=== PATIENT | female | born 1975 | race Hispanic/Latino ===

== ENCOUNTER 2017-01-05 08:44 | Emergency (ER) | payer MEDICARE ==
[2017-01-05 08:57] VITALS: BP 118/74
[2017-01-05 09:10] LABS: Basophils % (Auto) 0.9 % (0.0-1.8); Eosinophils % (Auto) 1.1 % (0.0-4.3); Hematocrit 38.3 % (30.3-42.9); Hemoglobin 13.1 gm/dl (10.1-14.3); Mean Corpuscular HGB Conc 34 % (30-34); Mean Corpuscular Hemoglobin 32 pg (28-32); Mean Corpuscular Volume 94 fl (79-97); Platelet Count 227 K/mm3 (140-440); Red Cell Distribution Width 13.7 % (13.2-15.2); White Blood Count 9.4 K/mm3 (4.5-11.0)
[2017-01-05 09:25] LABS: Anion Gap 20 mmol/L; BUN/Creatinine Ratio 18.33; Blood Urea Nitrogen 11 mg/dL (7-17); Calcium 9.4 mg/dL (8.4-10.2); Carbon Dioxide 22 mmol/L (22-30); Chloride 103.8 mmol/L (98-107); Glucose 104 mg/dL (65-100); Potassium 3.3 mmol/L (3.6-5.0); Sodium 142 mmol/L (137-145)
--- NOTE | 2017-01-05 10:53 | XRay Report ---
ROUTINE CHEST, TWO VIEWS: HISTORY: Cough. The trachea, heart, mediastinal contour, lung bentley and bony thorax are unremarkable. IMPRESSION: Unremarkable chest x-ray.
[2017-01-05 11:01] LABS: Bacteria,Urine 1+ /HPF (Negative); Bilirubin,Urine NEG (Negative); Blood,Urine NEG (Negative); Ketones,Urine NEG (Negative); Leukocyte Esterase,Urine NEG (Negative); Mucus,Urine 3+ /HPF; Nitrite,Urine NEG (Negative); Protein,Urine <15 mg/dL mg/dL (Negative); Urobilinogen,Urine < 2.0 mg/dL (<2.0)
--- NOTE | 2017-01-10 22:11 | ED Elopement Review ---
ED Pt Elopement review - Results review Lab results: Laboratory Tests 01/05/17 01/05/17 01/05/17 09:00 09:00 10:15 WBC 9.4 RBC 4.10 Hgb 13.1 Hct 38.3 MCV 94 MCH 32 MCHC 34 RDW 13.7 Plt Count 227 Lymph % (Auto) 29.4 [place] % (Auto) 9.1 H Eos % (Auto) 1.1 Baso % (Auto) 0.9 Lymph # 2.8 [place] # 0.9 H Eos # 0.1 Baso # 0.1 Seg Neutrophils % 59.5 Seg Neutrophils # 5.6 Sodium 142 Potassium 3.3 L Chloride 103.8 Carbon Dioxide 22 Anion Gap 20 BUN 11 Creatinine 0.6 L Estimated GFR > 60 BUN/Creatinine Ratio 18.33 Glucose 104 H Calcium 9.4 Urine Color Yellow Urine Turbidity Clear Urine pH 5.0 Ur Specific [place] 1.017 Urine Protein <15 mg/dl Urine Glucose (UA) Neg Urine Ketones Neg Urine Blood Neg Urine Nitrite Neg Urine Bilirubin Neg Urine Urobilinogen < 2.0 Ur Leukocyte Esterase Neg Urine WBC (Auto) 1.0 Urine RBC (Auto) 1.0 U Epithel Cells (Auto) 1.0 Urine Bacteria (Auto) 1+ Urine Mucus 3+ - Call Back decision Pt Call Back Decision: Pt to F/U with PMD (mild hypokalemia)
== END 2017-01-05 10:16 | disposition left against medical advice (07) ==
LOC: ED 08:44
DX: R11.2 Nausea with vomiting, unspecified (principal); R19.7 Diarrhea, unspecified; J45.909 Unspecified asthma, uncomplicated; F17.200 Nicotine dependence, unspecified, uncomplicated; Z88.0 Allergy status to penicillin; Z88.6 Allergy status to analgesic agent; Z53.21 Procedure and treatment not carried out due to patient leaving prior to being seen by health care provider
CPT/HCPCS: 36415; 71020; 80048; 81001; 85025

== ENCOUNTER 2017-01-16 16:33 | Emergency (ER) | payer MEDICARE ==
[2017-01-16 16:52] VITALS: BP 107/79
--- NOTE | 2017-01-16 17:16 | Emergency Department Report ---
HPI - General Chief Complaint: Medical Clearance Time Seen by Provider: 01/16/17 17:15 - HPI HPI: Patient has no chief complaint. Denies shortness breath, denies cough denies fever denies chest pain denies nausea vomiting headache syncope blurred vision. Patient states she return to the ER to get results from her last visit in which she left AMA. ED Past Medical Hx - Past Medical History Previous Medical History?: Yes Hx Asthma: Yes Additional medical history: cardiomegaly - Surgical History Past Surgical History?: Yes Hx Appendectomy: Yes Additional Surgical History: bladder surgery, nasal surgery - Social History Smoking Status: Current Every Day Smoker Substance Use Type: Marijuana - Medications Home Medications: Home Medications Medication Instructions Recorded Confirmed Last Taken Type Albuterol *Only Ed* [Proventil 04/29/13 04/29/13 04/16/13 09:00 History 0.5% NEBS] clonazePAM [Klonopin] 1 mg PO 04/29/13 04/29/13 04/16/13 12:00 History Ibuprofen [Motrin] 800 mg PO Q8H PRN #20 tablet 05/12/14 Unknown Rx ED Review of Systems ROS: Stated complaint: LETTER TO FOLLOW UP ED VISIT Other details as noted in HPI Constitutional: denies: chills, fever Eyes: denies: eye pain, eye discharge, vision change ENT: denies: ear pain, throat pain Respiratory: denies: cough, shortness of breath, wheezing Cardiovascular: denies: chest pain, palpitations Endocrine: no symptoms reported Gastrointestinal: denies: abdominal pain, nausea, diarrhea Genitourinary: denies: urgency, dysuria, discharge Musculoskeletal: denies: back pain, joint swelling, arthralgia Skin: denies: rash, lesions Neurological: denies: headache, weakness, paresthesias Psychiatric: denies: anxiety, depression Hematological/Lymphatic: denies: easy bleeding, easy bruising Physical Exam - Physical Exam Vital Signs: Vital Signs 01/16/17 16:47 Temperature 98.3 F Pulse Rate 74 Respiratory 18 Rate Blood Pressure 107/79 Blood Pressure 107/79 [Right] O2 Sat by Pulse 99 Oximetry General: Patient awake alert and oriented, no focal neuro deficit, normotensive normal cardiac and afebrile, eating Doritos on physical exam. Patient has no respiratory distress, abdomen soft nontender, patient's moving all extremities 4 full range of motion good cap refill. Skin is clear of rash lesions or diaphoresis. Patient's eyes are PERRLA. I reviewed the patient's chest x-ray and labs prior visit and there were no negative findings. ED Course Vital Signs 01/16/17 16:47 Temperature 98.3 F Pulse Rate 74 Respiratory 18 Rate Blood Pressure 107/79 Blood Pressure 107/79 [Right] O2 Sat by Pulse 99 Oximetry Critical care attestation.: If time is entered above; I have spent that time in minutes in the direct care of this critically ill patient, excluding procedure time. ED Disposition Clinical Impression: Normal exam Disposition: DISCHARGED TO HOME OR SELFCARE Is pt being admited?: No Condition: Stable Referrals: PRIMARY CARE, [Primary Care Provider] - 3-5 Days MASON BRASWELL MD [Staff Physician] - 3-5 Days
== END 2017-01-16 17:37 | disposition home or self-care (01) ==
LOC: ED 16:33
DX: Z00.00 Encounter for general adult medical examination without abnormal findings (principal); F17.200 Nicotine dependence, unspecified, uncomplicated; F12.10 Cannabis abuse, uncomplicated; J45.909 Unspecified asthma, uncomplicated; Z98.890 Other specified postprocedural states
CPT/HCPCS: 99281

== ENCOUNTER 2017-03-10 19:07 | Emergency (ER) | payer MEDICARE ==
[2017-03-10 19:34] VITALS: BP 107/75
[2017-03-10] MEDS ORDERED: BOOSTRIX IM ONE (20:01)
[2017-03-10] MEDS ORDERED: ULTRAM PO ONE (20:01)
--- NOTE | 2017-03-10 20:03 | Emergency Department Report ---
ED Upper Extremity Inj HPI - General Chief Complaint: Extremity Injury, Upper Stated Complaint: RT POINTER FINGER POSS BROKEN Time Seen by Provider: 03/10/17 19:53 Source: patient Mode of arrival: Ambulatory Limitations: No Limitations - History of Present Illness Initial Comments: right index finger versus hammer 2 days ago pain MD marianne Complaint: Injury to:: right, finger Onset/Timin -: days(s) Other Extremity Injury: Fingers: Right (right index ) Other Injuries: none Handedness: right Place: home Severity scale (0 -10): 3 Improves With: none Worsens With: movement of extremity Context: direct blow Associated Symptoms: denies: weakness, numbness, neck pain, suspects foreign body, nausea/vomiting, heard/felt popping sensat Treatments Prior to Arrival: cold therapy - Related Data Home Medications Medication Instructions Recorded Confirmed Last Taken Albuterol *Only Ed* [Proventil 04/29/13 04/29/13 04/16/13 09:00 0.5% NEBS] clonazePAM [Klonopin] 1 mg PO 04/29/13 04/29/13 04/16/13 12:00 Previous Rx's Medication Instructions Recorded Last Taken Type Ibuprofen [Motrin] 800 mg PO Q8H PRN #20 tablet 05/12/14 Unknown Rx Naproxen [Naprosyn TAB] 500 mg PO BID PRN #60 tablet 03/10/17 Unknown Rx Neomycin [place]/Bacitrac Zn/Poly 14.2 gm TP BID #1 tube 03/10/17 Unknown Rx [Neosporin Antibiotic Ointment] Allergies Allergy/AdvReac Type Severity Reaction Status Date / Time Penicillins Allergy Hives Verified 04/29/13 11:59 aspirin AdvReac Bleeding Verified 04/29/13 11:59 bug control spray Allergy Shortness Uncoded 01/05/17 08:52 of Breath ED Review of Systems ROS: Stated complaint: RT POINTER FINGER POSS BROKEN Other details as noted in HPI Constitutional: denies: chills, fever Eyes: denies: eye pain, eye discharge, vision change ENT: denies: ear pain, throat pain Respiratory: no symptoms reported Cardiovascular: denies: chest pain, palpitations Endocrine: no symptoms reported Gastrointestinal: denies: abdominal pain, nausea, diarrhea Genitourinary: denies: urgency, dysuria, discharge Musculoskeletal: myalgia. denies: back pain, joint swelling Skin: lesions, other (right dorsal index finger ) Neurological: denies: headache, weakness, paresthesias Psychiatric: denies: anxiety, depression Hematological/Lymphatic: denies: easy bleeding, easy bruising ED Past Medical Hx - Past Medical History Previous Medical History?: Yes Hx Asthma: Yes Additional medical history: cardiomegaly - Surgical History Past Surgical History?: Yes Hx Appendectomy: Yes Additional Surgical History: bladder surgery, nasal surgery - Social History Smoking Status: Current Every Day Smoker Substance Use Type: None - Medications Home Medications: Home Medications Medication Instructions Recorded Confirmed Last Taken Type Albuterol *Only Ed* [Proventil 04/29/13 04/29/13 04/16/13 09:00 History 0.5% NEBS] clonazePAM [Klonopin] 1 mg PO 04/29/13 04/29/13 04/16/13 12:00 History Ibuprofen [Motrin] 800 mg PO Q8H PRN #20 tablet 05/12/14 Unknown Rx Naproxen [Naprosyn TAB] 500 mg PO BID PRN #60 tablet 03/10/17 Unknown Rx Neomycin [place]/Bacitrac Zn/Poly 14.2 gm TP BID #1 tube 03/10/17 Unknown Rx [Neosporin Antibiotic Ointment] ED Physical Exam - General Limitations: No Limitations General appearance: alert, in no apparent distress - Head Head exam: Present: atraumatic, normocephalic - Eye Eye exam: Present: normal appearance - ENT ENT exam: Present: mucous membranes moist - Neck Neck exam: Present: normal inspection - Respiratory Respiratory exam: Present: normal lung sounds bilaterally. Absent: respiratory distress - Cardiovascular Cardiovascular Exam: Present: regular rate, normal rhythm. Absent: systolic murmur, diastolic murmur, rubs, gallop - GI/Abdominal GI/Abdominal exam: Present: soft, normal bowel sounds - Rectal Rectal exam: Present: deferred - Extremities Exam Extremities exam: Present: normal inspection, tenderness, normal capillary refill. Absent: joint swelling, calf tenderness - Expanded Upper Extremity Exam Right Shoulder Exam: Present: normal inspection, full ROM Upper Arm exam: Present: normal inspection, full ROM Elbow exam: Present: normal inspection, full ROM Forearm Wrist exam: Present: normal inspection, full ROM Hand Wrist exam: Present: normal inspection, tenderness, abrasion (right index finger approx 3 cm serious drainage ), other (right index finger ). Absent: swelling, ecchymosis, deformity, crepidus, dislocation, erythema, amputation, nail avulsion, subungual hematoma Neuro motor exam: Present: wrist extension intact, thumb opposition intact, thumb IP flexion intact, thumb adduction intact, fingers 2-5 abduction intact Neurosensory exam: Present: 2-point discrimination, radial nerve intact, ulnar nerve intact, median nerve intact Vascular: Present: normal capillary refill, radial pulse, brachial pulse, ulnar pulse. Absent: vascular compromise, Pallo, pulse deficit radial art, pulse deficit ulnar art, pulse deficit brachial art - Back Exam Back exam: Present: normal inspection - Neurological Exam Neurological exam: Present: alert, oriented X3 - Psychiatric Psychiatric exam: Present: normal affect, normal mood - Skin Skin exam: Present: warm, dry, intact, normal color. Absent: rash ED Course Vital Signs 03/10/17 19:27 Temperature 98.3 F Pulse Rate 73 Respiratory 20 Rate Blood Pressure 107/75 O2 Sat by Pulse 100 Oximetry ED Medical Decision Making - Radiology Data Radiology results: image reviewed no fracture no soft tissue abnormality - Medical Decision Making pt is s a42 y/o w/f who presents for right index finger abrasions and pain s/p hammer for finger with attempt to hammer nail in wall at home 1 day ago sympttoms include pain aching tingling , pain 4/10 exacerbated by movement pt relieved by nothing exam abrasion approx 3 cm serous drainage, pain with flexion /extension there is no deformity no ecchymosis no swelling button puncher < 3 sec fist adductio abduction to confrontation intact rad pulse +2, xray negative for fracture will tdap, nsaids for pain finger splint tx of finger sprain , pt verbalized agreement and understanding with discharge plan. Critical care attestation.: If time is entered above; I have spent that time in minutes in the direct care of this critically ill patient, excluding procedure time. ED Disposition Clinical Impression: Sprain of finger, right Qualifiers: Encounter type: initial encounter Finger: index finger Sprain of finger site: interphalangeal joint Qualified Code(s): S63.630A - Sprain of interphalangeal joint of right index finger, initial encounter Disposition: TO HOME OR SELFCARE Is pt being admited?: No Does the pt Need Aspirin: No Condition: Good Instructions: Finger Sprain (ED), Abrasion (ED) Prescriptions: Naproxen [Naprosyn TAB] 500 mg PO BID PRN #60 tablet PRN Reason: Pain Neomycin [place]/Bacitrac Zn/Poly [Neosporin Antibiotic Ointment] 14.2 gm TP BID #1 tube Referrals: PRIMARY CARE, [Referring] - 3-5 Days Forms: Work/School Release Form(ED) Time of Disposition: 20:15
--- NOTE | 2017-03-10 20:38 | XRay Report ---
FINAL REPORT PROCEDURE: XR FINGER(S) 2+V RT TECHNIQUE: RIGHT index finger radiographs, including AP, lateral, and oblique views. HISTORY: RIGHT INDEX FINGER PAIN COMPARISON: No prior studies are available for comparison. FINDINGS: Fracture (s) and/or Dislocation(s): None . Alignment: Normal. Joint space(s): Normal . Soft tissues: Normal . Bone mineralization: Normal . Foreign bodies: None . IMPRESSION: Negative examination
== END 2017-03-10 20:33 | disposition home or self-care (01) ==
LOC: ED 19:07
DX: S63.630A Sprain of interphalangeal joint of right index finger, initial encounter (principal); J45.909 Unspecified asthma, uncomplicated; F17.200 Nicotine dependence, unspecified, uncomplicated; X58.XXXA Exposure to other specified factors, initial encounter; Y93.9 Activity, unspecified; Y92.9 Unspecified place or not applicable; Y99.9 Unspecified external cause status
CPT/HCPCS: 90471; 90715

== ENCOUNTER 2017-08-08 11:23 | Emergency (ER) | payer MEDICARE ==
[2017-08-08 12:27] LABS: Hematocrit 37.8 % (30.3-42.9); Hemoglobin 12.7 gm/dl (10.1-14.3); Mean Corpuscular HGB Conc 34 % (30-34); Mean Corpuscular Hemoglobin 31 pg (28-32); Mean Corpuscular Volume 92 fl (79-97); Platelet Count 216 K/mm3 (140-440); Red Blood Count 4.12 M/mm3 (3.65-5.03); White Blood Count 12.8 K/mm3 (4.5-11.0)
[2017-08-08 12:49] LABS: Anion Gap 23 mmol/L; BUN/Creatinine Ratio 18; Blood Urea Nitrogen 11 mg/dL (7-17); Calcium 9.3 mg/dL (8.4-10.2); Carbon Dioxide 19 mmol/L (22-30); Chloride 103.1 mmol/L (98-107); Glucose 99 mg/dL (65-100); Sodium 142 mmol/L (137-145)
[2017-08-08 12:58] LABS: Potassium 2.9 mmol/L (3.6-5.0)
[2017-08-08] MEDS ORDERED: K-DUR PO ONE (12:59)
[2017-08-08 13:03] LABS: Basophils % (Manual) 0 % (0.0-1.8); Blastocytes % (Manual) 0 %; Diff Status Complete; Eosinophils % (Manual) 0 % (0.0-4.3); RBC Morphology Normal
[2017-08-08] MEDS ORDERED: NORCO 5/325 PO ONE (13:09)
[2017-08-08] MEDS ORDERED: TESSALON PERLES PO ONE (13:11)
[2017-08-08] MEDS ORDERED: ATROVENT IH ONE (13:11)
[2017-08-08] MEDS ORDERED: PROVENTIL IH ONE (13:11)
--- NOTE | 2017-08-08 13:16 | Emergency Department Report ---
HPI - General Chief Complaint: Chest Pain Time Seen by Provider: 08/08/17 12:57 - HPI HPI: Room 26 The patient is a 42-year-old female presenting with a chief complaint of cough, facial pain and sore throat. The patient states for 1 week she has had nausea vomiting diarrhea condition to a cough productive of green sputum. Patient states she has left facial pain and sore throat. Patient admits to shaking chills. Patient states she had a fever at home of 100.7F. There are no sick contacts. Location: [See above] Duration: One week Quality: Pain Severity: Moderate Modifying factors: [see above] Context: [see above] Mode of transportation: [not driving] ED Past Medical Hx - Past Medical History Previous Medical History?: Yes Hx Asthma: Yes Additional medical history: cardiomegaly - Surgical History Hx Appendectomy: Yes Additional Surgical History: bladder surgery, nasal surgery - Family History Family history: no significant - Social History Smoking Status: Current Every Day Smoker (1/2 pack per day) Substance Use Type: None (denies illicit drug use) - Medications Home Medications: Home Medications Medication Instructions Recorded Confirmed Last Taken Type Albuterol *Only Ed* [Proventil 04/29/13 04/29/13 04/16/13 09:00 History 0.5% NEBS] clonazePAM [Klonopin] 1 mg PO 04/29/13 04/29/13 04/16/13 12:00 History Ibuprofen [Motrin] 800 mg PO Q8H PRN #20 tablet 05/12/14 Unknown Rx Naproxen [Naprosyn TAB] 500 mg PO BID PRN #60 tablet 03/10/17 Unknown Rx Neomycin/Bacitracin/Polymyxinb 14.2 gm TP BID #1 tube 03/10/17 Unknown Rx [Neosporin Antibiotic Ointment] ALBUTEROL Inhaler [Proair] 2 puff IH QID PRN #1 inhalation 08/08/17 Unknown Rx Azithromycin [Zithromax Z-LILIAN] 0 mg PO DAILY #6 tab 08/08/17 Unknown Rx Benzonatate [Tessalon Perle] 100 mg PO TID PRN #30 capsule 08/08/17 Unknown Rx HYDROcodone/APAP 5-325 [[place] 1 - 2 each PO Q6HR PRN #14 tablet 08/08/17 Unknown Rx 5/325] ED Review of Systems ROS: Stated complaint: BODY ACHES/FEVER/COUGHING Other details as noted in HPI Constitutional: chills, fever ENT: throat pain, other (facial pain) Respiratory: cough Gastrointestinal: nausea, vomiting, diarrhea Musculoskeletal: denies: myalgia Physical Exam - Physical Exam Vital Signs: Vital Signs 08/08/17 08/08/17 08/08/17 11:31 11:37 11:43 Temperature 98.4 F 98.4 F Pulse Rate 65 67 68 Respiratory 25 H 10 L 22 Rate Blood Pressure 102/64 Blood Pressure 102/64 [Left] O2 Sat by Pulse 99 99 98 Oximetry 08/08/17 08/08/17 12:46 12:48 Temperature Pulse Rate 63 Respiratory 14 Rate Blood Pressure Blood Pressure [Left] O2 Sat by Pulse 98 Oximetry Physical Exam: GENERAL: The patient is well-developed well-nourished female lying on stretcher not appearing to be in acute distress. [] HEENT: Normocephalic. Atraumatic. Extraocular motions are intact. Patient has moist mucous membranes. TMs clear bilaterally NECK: Supple. No meningitic signs are noted. There is left cervical adenopathy noted. CHEST/LUNGS: Clear to auscultation. There is no respiratory distress noted. HEART/CARDIOVASCULAR: Regular. There is no tachycardia. There is no gallop rub or murmur. ABDOMEN: Abdomen is soft, nontender. Patient has normal bowel sounds. There is no abdominal distention. SKIN: There is no rash. There is no edema. There is no diaphoresis. NEURO: The patient is awake, alert, and oriented. The patient is cooperative. The patient has normal speech MUSCULOSKELETAL: There is no evidence of acute injury. ED Course Vital Signs 08/08/17 08/08/17 08/08/17 11:31 11:37 11:43 Temperature 98.4 F 98.4 F Pulse Rate 65 67 68 Respiratory 25 H 10 L 22 Rate Blood Pressure 102/64 Blood Pressure 102/64 [Left] O2 Sat by Pulse 99 99 98 Oximetry 08/08/17 08/08/17 12:46 12:48 Temperature Pulse Rate 63 Respiratory 14 Rate Blood Pressure Blood Pressure [Left] O2 Sat by Pulse 98 Oximetry ED Medical Decision Making - Lab Data Result diagrams: 08/08/17 12:23 08/08/17 12:23 Laboratory Tests 08/08/17 08/08/17 08/08/17 12:23 12:23 15:20 WBC 12.8 H RBC 4.12 Hgb 12.7 Hct 37.8 MCV 92 MCH 31 MCHC 34 RDW 13.0 L Plt Count 216 Lymph # Manager Paper Add Manual Diff Complete Total Counted 100 Seg Neuts % (Manual) 60.0 Band Neutrophils % 0 Lymphocytes % (Manual) 29.0 Reactive Lymphs % (Man) 0 Monocytes % (Manual) 11.0 H Eosinophils % (Manual) 0 Basophils % (Manual) 0 Metamyelocytes % 0 Myelocytes % 0 Promyelocytes % 0 Blast Cells % 0 Nucleated RBC % Not Reportable Seg Neutrophils # Man 7.7 Band Neutrophils # 0.0 Lymphocytes # (Manual) 3.7 Abs React Lymphs (Man) 0.0 Monocytes # (Manual) 1.4 H Eosinophils # (Manual) 0.0 Basophils # (Manual) 0.0 Metamyelocytes # 0.0 Myelocytes # 0.0 Promyelocytes # 0.0 Blast Cells # 0.0 WBC Morphology Not Reportable Hypersegmented Neuts Not Reportable Hyposegmented Neuts Not Reportable Hypogranular Neuts Not Reportable Smudge Cells Not Reportable Toxic Granulation Not Reportable Toxic Vacuolation Not Reportable Dohle Bodies Not Reportable Pelger-Huet Anomaly Not Reportable Kaylin Rods Not Reportable Platelet Estimate Appears normal Clumped Platelets Not Reportable Plt Clumps, EDTA Not Reportable Large Platelets Not Reportable Giant Platelets Not Reportable Platelet Satelliting Not Reportable Plt Morphology Comment Not Reportable RBC Morphology Normal Dimorphic RBCs Not Reportable Polychromasia Not Reportable Hypochromasia Not Reportable Poikilocytosis Not Reportable Anisocytosis Not Reportable Microcytosis Not Reportable Macrocytosis Not Reportable Spherocytes Not Reportable Pappenheimer Bodies Not Reportable Sickle Cells Not Reportable Target Cells Not Reportable Tear Drop Cells Not Reportable Ovalocytes Not Reportable Helmet Cells Not Reportable Ochoa-Leith Bodies Not Reportable [place] Rings Not Reportable Rubi Cells Not Reportable Bite Cells Not Reportable Crenated Cell Not Reportable Elliptocytes Not Reportable Acanthocytes (Spur) Not Reportable Rouleaux Not Reportable Hemoglobin C Crystals Not Reportable Schistocytes Not Reportable Malaria parasites Not Reportable Santos Bodies Not Reportable Hem Pathologist Commnt No Sodium 142 Potassium 2.9 L* Chloride 103.1 Carbon Dioxide 19 L Anion Gap 23 BUN 11 Creatinine 0.6 L Estimated GFR > 60 BUN/Creatinine Ratio 18 Glucose 99 Calcium 9.3 Troponin T < 0.010 < 0.010 Influenza negative - EKG Data -: EKG Interpreted by Me EKG shows normal: sinus rhythm Rate: normal - EKG Data When compared to previous EKG there are: previous EKG unavailable Interpretation: nonspecific ST-T wave terrie (biphasic T-wave in lead V2) - Radiology Data Radiology results: image reviewed (chest x-ray) interpreted by me: Chest x-ray-no focal infiltrates, no pneumothorax - Differential Diagnosis pneumonia, sinusitis, influenza, pharyngitis Critical care attestation.: If time is entered above; I have spent that time in minutes in the direct care of this critically ill patient, excluding procedure time. ED Disposition Clinical Impression: Acute sinusitis, Acute pharyngitis, Acute bronchitis Disposition: - TO HOME OR SELFCARE Is pt being admited?: No Does the pt Need Aspirin: No Condition: Stable Instructions: Acute Bronchitis (ED) Additional Instructions: Return to the emergency department immediately should you develop worsening symptoms, fever, inability to tolerate food or liquid or any other concerns. Prescriptions: ALBUTEROL Inhaler [Proair] 2 puff IH QID PRN #1 inhalation PRN Reason: Shortness Of Breath Azithromycin [Zithromax Z-LILIAN] 0 mg PO DAILY #6 tab Benzonatate [Tessalon Perle] 100 mg PO TID PRN #30 capsule PRN Reason: Cough HYDROcodone/APAP 5-325 [[place] 5/325] 1 - 2 each PO Q6HR PRN #14 tablet PRN Reason: Pain Referrals: ADRIAN VIZCAINO JR, MD [Primary Care Provider] - 3-5 Days Time of Disposition: 16:58
--- NOTE | 2017-08-08 13:34 | XRay Report ---
PORTABLE CHEST: Productive cough. An AP portable view of the chest demonstrates a normal cardiac contour considering the limits of this technique. The lungs are clear with no evidence of infiltrate, fluid or failure. IMPRESSION: Normal portable chest.
[2017-08-08 16:52] VITALS: BP 109/68
== END 2017-08-08 17:32 | disposition home or self-care (01) ==
LOC: ED 11:23
DX: J20.9 Acute bronchitis, unspecified (principal); J02.9 Acute pharyngitis, unspecified; J01.90 Acute sinusitis, unspecified; J45.909 Unspecified asthma, uncomplicated; F17.200 Nicotine dependence, unspecified, uncomplicated; Z88.0 Allergy status to penicillin; Z88.6 Allergy status to analgesic agent
CPT/HCPCS: 36415; 71010; 80048; 84484; 85007; 85025; 87400; 93005; 93010; 94640

== ENCOUNTER 2018-04-06 18:38 | Emergency (ER) | payer MEDICARE ==
[2018-04-06 19:40] VITALS: BP 149/85
[2018-04-06] MEDS ORDERED: MOTRIN ONE (19:53)
[2018-04-06] MEDS ORDERED: MOTRIN PO ONE (19:56)
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
[2018-04-06] MEDS ORDERED: MORPHINE IV ONE (21:17)
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
== END 2018-04-06 21:47 | disposition home or self-care (01) ==
LOC: ED 18:38
DX: S56.912A Strain of unspecified muscles, fascia and tendons at forearm level, left arm, initial encounter (principal); F17.200 Nicotine dependence, unspecified, uncomplicated; J45.909 Unspecified asthma, uncomplicated; F12.10 Cannabis abuse, uncomplicated; Z90.49 Acquired absence of other specified parts of digestive tract; Z88.0 Allergy status to penicillin; Z88.8 Allergy status to other drugs, medicaments and biological substances; V09.9XXA Pedestrian injured in unspecified transport accident, initial encounter; Y93.89 Activity, other specified; Y92.89 Other specified places as the place of occurrence of the external cause; Y99.8 Other external cause status
CPT/HCPCS: 29105; 73060; 73070; 73090; 96374; 99284; J2270

== ENCOUNTER 2018-09-28 12:49 | Emergency (ER) | payer MEDICARE ==
[2018-09-28 13:43] VITALS: BP 120/73
--- NOTE | 2018-09-28 13:46 | Emergency Department Report ---
Blank Doc - Documentation Documentation: 43 y o female presents with pain tp left foot pain s/p dropping a side of the bed frame and landed on her foot 40 mins ago in wheel chair, tender no deformity seen xr ordered
--- NOTE | 2018-09-28 14:29 | XRay Report ---
LEFT FOOT, 3 views: History: Left foot. The bony architecture is intact. Bony alignment is normal. No soft tissue abnormalities are seen. The joint spaces appear preserved. IMPRESSION: Left foot within normal limits.
[2018-09-28] MEDS ORDERED: IBUPROFEN PO ONE (17:00)
--- NOTE | 2018-09-28 17:01 | Emergency Department Report ---
ED Lower Extremity HPI - General Chief Complaint: Extremity Injury, Lower Stated Complaint: (L) FOOT INJURY Time Seen by Provider: 09/28/18 13:40 Source: patient Mode of arrival: Wheelchair Limitations: No Limitations - History of Present Illness Initial Comments: This is a 43-year-old female who presents with left foot pain. Patient states she accidentally dropped the left foot around 12:15 today. She was helping her daughter move a period to paint. There is some bruising and mild swelling to the metatarsal area from third and fourth. Patient states pain is worse with weightbearing. Currently pain is 10 out of 10 on pain scale and a constant throbbing sensation. Patient also complains of a bump in left nare. She reports increased congestion and pressure in the left maxillary area. MD Complaint: foot injury (left) -: This afternoon Time: 12:10 Injury: Foot: Left Type of Injury: blunt Place: home Severity: severe Severity scale (0 -10): 10 Improves With: nothing Worsens With: weight bearing, movement, palpation Context: direct blow Associated Symptoms: swelling, able to partially bear weight, ambulatory. denies: snap/pop sensation, numbness, tingling, unable to bear weight - Related Data Home Medications Medication Instructions Recorded Confirmed Last Taken Albuterol *Only Ed* [Proventil 04/29/13 04/29/13 04/16/13 09:00 0.5% NEBS] clonazePAM [Klonopin] 1 mg PO 04/29/13 04/29/13 04/16/13 12:00 Previous Rx's Medication Instructions Recorded Last Taken Type Ibuprofen [Motrin] 800 mg PO Q8H PRN #20 tablet 05/12/14 Unknown Rx Naproxen [Naprosyn TAB] 500 mg PO BID PRN #60 tablet 03/10/17 Unknown Rx Neomycin/Bacitracin/Polymyxinb 14.2 gm TP BID #1 tube 03/10/17 Unknown Rx [Neosporin Antibiotic Ointment] ALBUTEROL Inhaler (OR & NICU) 2 puff IH QID PRN #1 inhalation 08/08/17 Unknown Rx [Proair] Azithromycin [Zithromax Z-LILIAN] 0 mg PO DAILY #6 tab 08/08/17 Unknown Rx Benzonatate [Tessalon Perle] 100 mg PO TID PRN #30 capsule 08/08/17 Unknown Rx HYDROcodone/APAP 5-325 [[place] 1 - 2 each PO Q6HR PRN #14 tablet 08/08/17 Unknown Rx 5/325] Acetaminophen/Codeine [Tylenol 1 tab PO Q6H PRN #12 tab 04/06/18 Unknown Rx /Codeine # 3 tab] Ibuprofen [Motrin] 600 mg PO Q8H PRN #30 tablet 04/06/18 Unknown Rx Doxycycline Hyclate [Doxycycline 100 mg PO Q12HR #10 tab 09/28/18 Unknown Rx Hyclate TAB] Ibuprofen [Motrin 600 MG tab] 600 mg PO Q8H PRN #12 tablet 09/28/18 Unknown Rx Allergies Allergy/AdvReac Type Severity Reaction Status Date / Time amoxicillin Allergy Hives Verified 09/28/18 13:41 Penicillins Allergy Hives Verified 09/28/18 13:40 aspirin AdvReac Bleeding Verified 09/28/18 13:40 CONTROL Allergy Bleeding Uncoded 09/28/18 13:41 bug control spray Allergy Shortness Uncoded 01/05/17 08:52 of Breath ED Review of Systems ROS: Stated complaint: (L) FOOT INJURY Other details as noted in HPI Constitutional: denies: chills, fever Respiratory: denies: cough, shortness of breath, wheezing Cardiovascular: denies: chest pain, palpitations Gastrointestinal: denies: abdominal pain, nausea, diarrhea Musculoskeletal: arthralgia (left foot). denies: back pain, joint swelling Skin: lesions (bump in the left nare). denies: rash Neurological: denies: headache, weakness, paresthesias ED Past Medical Hx - Past Medical History Hx Asthma: Yes Additional medical history: cardiomegaly - Surgical History Hx Appendectomy: Yes Additional Surgical History: bladder surgery, nasal surgery - Social History Smoking Status: Current Every Day Smoker Substance Use Type: None - Medications Home Medications: Home Medications Medication Instructions Recorded Confirmed Last Taken Type Albuterol *Only Ed* [Proventil 04/29/13 04/29/13 04/16/13 09:00 History 0.5% NEBS] clonazePAM [Klonopin] 1 mg PO 04/29/13 04/29/13 04/16/13 12:00 History Ibuprofen [Motrin] 800 mg PO Q8H PRN #20 tablet 05/12/14 Unknown Rx Naproxen [Naprosyn TAB] 500 mg PO BID PRN #60 tablet 03/10/17 Unknown Rx Neomycin/Bacitracin/Polymyxinb 14.2 gm TP BID #1 tube 03/10/17 Unknown Rx [Neosporin Antibiotic Ointment] ALBUTEROL Inhaler (OR & NICU) 2 puff IH QID PRN #1 inhalation 08/08/17 Unknown Rx [Proair] Azithromycin [Zithromax Z-LILIAN] 0 mg PO DAILY #6 tab 08/08/17 Unknown Rx Benzonatate [Tessalon Perle] 100 mg PO TID PRN #30 capsule 08/08/17 Unknown Rx HYDROcodone/APAP 5-325 [[place] 1 - 2 each PO Q6HR PRN #14 tablet 08/08/17 Unknown Rx 5/325] Acetaminophen/Codeine [Tylenol 1 tab PO Q6H PRN #12 tab 04/06/18 Unknown Rx /Codeine # 3 tab] Ibuprofen [Motrin] 600 mg PO Q8H PRN #30 tablet 04/06/18 Unknown Rx Doxycycline Hyclate [Doxycycline 100 mg PO Q12HR #10 tab 09/28/18 Unknown Rx Hyclate TAB] Ibuprofen [Motrin 600 MG tab] 600 mg PO Q8H PRN #12 tablet 09/28/18 Unknown Rx ED Physical Exam - General Limitations: No Limitations General appearance: alert, in no apparent distress - ENT ENT exam: Present: mucous membranes moist, other (turbinates are congested with mucoid discharge, tenderness over maxillary sinuses) - Neck Neck exam: Present: normal inspection - Respiratory Respiratory exam: Present: normal lung sounds bilaterally. Absent: respiratory distress - Cardiovascular Cardiovascular Exam: Present: regular rate, normal rhythm. Absent: systolic murmur, diastolic murmur, rubs, gallop - GI/Abdominal GI/Abdominal exam: Present: soft, normal bowel sounds. Absent: organomegaly, mass, bruit, pulsatile mass - Expanded Lower Extremity Exam Right Hip exam: Present: normal inspection, full ROM Upper Leg exam: Present: normal inspection, full ROM Knee exam: Present: normal inspection, full ROM Lower Leg exam: Present: normal inspection, full ROM Ankle exam: Present: normal inspection, full ROM Foot/Toe exam: Present: tenderness (erythema, swelling, and tenderness over third and fourth proximal metatarsals), swelling, erythema. Absent: full ROM (Limited range of motion), abrasion, laceration, ecchymosis, deformity, c repidus, dislocation, amputation, puncture wound, foreign body, calcaneal tenderness, tenderness at base of 5th metatarsal, nail avulsion, subungual hematoma - Neurological Exam Neurological exam: Present: alert, oriented X3 - Psychiatric Psychiatric exam: Present: normal affect, normal mood - Skin Skin exam: Present: warm, dry, intact, normal color. Absent: rash ED Course Vital Signs 09/28/18 13:41 Temperature 98 F Pulse Rate 79 Respiratory 18 Rate Blood Pressure 120/73 O2 Sat by Pulse 99 Oximetry ED Lower Extremity MDM - Radiology Data Radiology results: report reviewed LEFT FOOT, 3 views: History: Left foot. The bony architecture is intact. Bony alignment is normal. No soft tissue abnormalities are seen. The joint spaces appear preserved. IMPRESSION: Left foot within normal limits. - Medical Decision Making Patient was examined by me. Vitals are normal and patient is in no acute distress. Obtained a x-ray of left foot. X-ray dictated by radiologist report reviewed by myself. Left foot within normal limits. Muscle sprain of left foot. Jorden wrap applied to left foot. Patient given ibuprofen 800 mg by mouth while in the emergency room. Acute maxillary sinusitis. Given ice therapy instructions. Start ibuprofen and doxycycline. Plan discussed with patient. Patient discharged home in stable condition. Referral to orthopedic surgery for continued care. Follow up with PCP in 2-3 days. Critical care attestation.: If time is entered above; I have spent that time in minutes in the direct care of this critically ill patient, excluding procedure time. ED Disposition Clinical Impression: Injury of foot, left Qualifiers: Encounter type: initial encounter Qualified Code(s): S99.922A - Unspecified injury of left foot, initial encounter Sprain of foot, left Qualifiers: Encounter type: initial encounter Qualified Code(s): S93.602A - Unspecified sprain of left foot, initial encounter Acute maxillary sinusitis Qualifiers: Recurrence: non-recurrent Qualified Code(s): J01.00 - Acute maxillary sinusitis, unspecified Disposition: - TO HOME OR SELFCARE Is pt being admited?: No Does the pt Need Aspirin: No Condition: Stable Instructions: Sinusitis (ED), Foot Sprain (ED), Ankle Exercises (GEN) Additional Instructions: Rest, Use ice or heat on affected area for 20 minutes and off for 2 hours. Take pain medication every 6 hours as needed for pain. Use warm moist compresses over sinuses. Use ibuprofen or Tylenol for pain. Use nasal saline spray. Avoid taking antihistamines. Follow up with Primary Care Provider if fever, short of breath, chest pain, or symptoms do not improve as discussed. Prescriptions: Doxycycline Hyclate [Doxycycline Hyclate TAB] 100 mg PO Q12HR #10 tab Ibuprofen [Motrin 600 MG tab] 600 mg PO Q8H PRN #12 tablet PRN Reason: Pain Referrals: ADRIAN VIZCAINO JR, MD [Primary Care Provider] - 3-5 Days CLEO THOMAS MD [Staff Physician] - 3-5 Days Time of Disposition: 17:36
== END 2018-09-28 17:58 | disposition home or self-care (01) ==
LOC: ED 12:49
DX: S93.602A Unspecified sprain of left foot, initial encounter (principal); J01.00 Acute maxillary sinusitis, unspecified; J45.909 Unspecified asthma, uncomplicated; F17.200 Nicotine dependence, unspecified, uncomplicated; Z88.0 Allergy status to penicillin; Z88.1 Allergy status to other antibiotic agents; Z88.8 Allergy status to other drugs, medicaments and biological substances; W20.8XXA Other cause of strike by thrown, projected or falling object, initial encounter; Y93.89 Activity, other specified; Y92.89 Other specified places as the place of occurrence of the external cause; Y99.8 Other external cause status

== ENCOUNTER 2018-10-30 14:42 | Emergency (ER) | payer MEDICARE ==
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
[2018-10-30 16:40] VITALS: BP 113/85
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
[2018-10-30] MEDS ORDERED: IBUPROFEN PO ONE (19:26)
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
== END 2018-10-30 19:45 | disposition home or self-care (01) ==
LOC: ED 14:42
DX: S16.1XXA Strain of muscle, fascia and tendon at neck level, initial encounter (principal); S39.012A Strain of muscle, fascia and tendon of lower back, initial encounter; J45.909 Unspecified asthma, uncomplicated; F17.200 Nicotine dependence, unspecified, uncomplicated; Z90.49 Acquired absence of other specified parts of digestive tract; Z88.1 Allergy status to other antibiotic agents; Z88.0 Allergy status to penicillin; Z88.6 Allergy status to analgesic agent; V87.7XXA Person injured in collision between other specified motor vehicles (traffic), initial encounter; Y93.89 Activity, other specified; Y92.488 Other paved roadways as the place of occurrence of the external cause; Y99.8 Other external cause status
CPT/HCPCS: 72040; 72100; 93005; 93010; 99283

== ENCOUNTER 2019-04-17 19:27 | Emergency (ER) | payer MEDICARE ==
[2019-04-17] MEDS ORDERED: ZOFRAN IV ONE (20:23)
[2019-04-17] MEDS ORDERED: MORPHINE IV ONE (20:23)
--- NOTE | 2019-04-17 21:09 | XRay Report ---
LEFT SHOULDER 3 VIEW(S) INDICATION / CLINICAL INFORMATION: pain COMPARISON: Left humerus 04/06/2018 FINDINGS: No fracture is identified. The humerus is held in internal rotation on all provided views and project s over the glenoid fossa. Further evaluation with an axillary view radiograph is recommended to rodriguez r demonstrate glenohumeral alignment. Signer Name: Agustin Hartmann MD Signed: 04/17/2019 9:05 PM Workstation Name: [id number]
--- NOTE | 2019-04-17 21:10 | XRay Report ---
LEFT KNEE 2 VIEW(S) INDICATION / CLINICAL INFORMATION: pain COMPARISON: None available. FINDINGS: Evaluation is limited by absence of an oblique view. BONES / JOINT(S): Within the limitations of study, no acute fracture or subluxation. No significant a rthritis. SOFT TISSUES: No significant abnormality. ADDITIONAL FINDINGS: None. Signer Name: Agustin Hartmann MD Signed: 04/17/2019 9:06 PM Workstation Name: [id number]
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
[2019-04-17 22:31] VITALS: BP 113/79
== END 2019-04-17 22:56 | disposition home or self-care (01) ==
LOC: ED 19:27
DX: S09.90XA Unspecified injury of head, initial encounter (principal); M25.562 Pain in left knee; M25.512 Pain in left shoulder; J45.909 Unspecified asthma, uncomplicated; Z90.49 Acquired absence of other specified parts of digestive tract; F17.200 Nicotine dependence, unspecified, uncomplicated; Z98.890 Other specified postprocedural states; Z79.899 Other long term (current) drug therapy; Z88.6 Allergy status to analgesic agent; Z88.1 Allergy status to other antibiotic agents; Z88.0 Allergy status to penicillin; Z88.8 Allergy status to other drugs, medicaments and biological substances; W06.XXXA Fall from bed, initial encounter; Y93.89 Activity, other specified; Y92.89 Other specified places as the place of occurrence of the external cause; Y99.8 Other external cause status
CPT/HCPCS: 70450; 73030; 73560; 96374; 96375; 99284; J2270; J2405

== ENCOUNTER 2021-02-03 16:30 | Emergency (ER) | payer MEDICARE ==
[2021-02-03] MEDS ORDERED: LACTATED RINGERS 1000 ML IV SOLN IV ONE (17:10)
[2021-02-03] MEDS ORDERED: ONDANSETRON 4 MG/2 ML INJ IV ONE (17:15)
--- NOTE | 2021-02-03 17:23 | Emergency Department Report ---
HPI - General Chief Complaint: Nausea/Vomiting/Diarrhea Time Seen by Provider: 02/03/21 16:49 - HPI HPI: 46-year-old female with history of asthma and cardiomegaly presents from her doctor's office due to concern for dehydration or possible sepsis. The patient states that she suffered a dog bite to her right lower extremity 1 week ago. She was started on clindamycin prophylactically for the dog bite but developed nausea, vomiting, and diarrhea that same day. She stopped taking the clindamycin 2 days later. However, she is continued to have the n ausea/vomiting/diarrhea. She says she is having approximately 6 episodes of watery loose stools per day as well as to many episodes of nonbloody nonbilious mid emesis per day to count. She denies any fevers, headache, visual changes, chest pain, shortness of breath, cough, worsening pain/redness at the site of her bites. She says she has some pain in the lower part of her abdomen. On further questioning she does say that she has had dysuria. She has been eating and drinking but says she is unable to keep anything down. She went to see her doctor today but he sent her to the emergency department because her blood pressure was low and he was concerned about severe dehydration versus sepsis. ED Past Medical Hx - Past Medical History Previous Medical History?: Yes Hx Asthma: Yes Additional medical history: cardiomegaly - Surgical History Past Surgical History?: Yes Hx Appendectomy: Yes Additional Surgical History: bladder surgery, nasal surgery - Social History Smoking Status: Unknown if ever smoked Substance Use Type: Marijuana - Medications Home Medications: Home Medications Medication Instructions Recorded Confirmed Last Taken Type Albuterol *Only Ed* [Proventil 04/29/13 04/29/13 04/16/13 09:00 History 0.5% NEBS] clonazePAM [Klonopin] 1 mg PO 04/29/13 04/29/13 04/16/13 12:00 History Ibuprofen [Motrin] 800 mg PO Q8H PRN #20 tablet 05/12/14 Unknown Rx Naproxen [Naprosyn TAB] 500 mg PO BID PRN #60 tablet 03/10/17 Unknown Rx Neomycin/Bacitracin/Polymyxinb 14.2 gm TP BID #1 tube 03/10/17 Unknown Rx [Neosporin Antibiotic Ointment] Albuterol Mdi (or & Nicu Only) 2 puff IH QID PRN #1 inhalation 08/08/17 Unknown Rx [Proair] Azithromycin [Zithromax Z-LILIAN] 0 mg PO DAILY #6 tab 08/08/17 Unknown Rx Benzonatate [Tessalon Perle] 100 mg PO TID PRN #30 capsule 08/08/17 Unknown Rx HYDROcodone/APAP 5-325 [[place] 1 - 2 each PO Q6HR PRN #14 tablet 08/08/17 Unknown Rx 5/325] Acetaminophen/Codeine [Tylenol 1 tab PO Q6H PRN #12 tab 04/06/18 Unknown Rx /Codeine # 3 tab] Ibuprofen [Motrin] 600 mg PO Q8H PRN #30 tablet 04/06/18 Unknown Rx Doxycycline Hyclate [Doxycycline 100 mg PO Q12HR #10 tab 09/28/18 Unknown Rx Hyclate TAB] Ibuprofen [Motrin 600 MG tab] 600 mg PO Q8H PRN #12 tablet 09/28/18 Unknown Rx Cyclobenzaprine [Flexeril] 10 mg PO TID PRN #30 tablet 10/30/18 Unknown Rx Menthol/Camphor [[place] 1 applicatio TP QID PRN #1 tube 10/30/18 Unknown Rx Ointment] Naproxen [Naprosyn TAB] 500 mg PO BID #30 tablet 10/30/18 Unknown Rx HYDROcodone/APAP 5-325 [[place] 1 each PO Q6HR PRN #12 tablet 04/17/19 Unknown Rx 5/325] ED Review of Systems ROS: Stated complaint: N/V/D Other details as noted in HPI Constitutional: denies: chills, fever Eyes: denies: eye pain, vision change ENT: denies: throat pain, congestion Respiratory: denies: shortness of breath, wheezing Cardiovascular: denies: chest pain, syncope Gastrointestinal: abdominal pain, nausea, vomiting, diarrhea. denies: hematemesis, melena, hematochezia Genitourinary: dysuria. denies: frequency, hematuria Musculoskeletal: denies: back pain, myalgia Skin: denies: rash Neurological: denies: weakness, numbness Physical Exam - Physical Exam Vital Signs: Vital Signs 02/03/21 02/03/21 16:32 16:55 Pulse Rate 64 Respiratory 16 22 Rate Blood Pressure 124/84 [Right] O2 Sat by Pulse 99 Oximetry Physical Exam: GENERAL: Well developed and well nourished. No acute distress HEENT: Normocephalic. No obvious signs of trauma. Dry mucous membranes. Very poor dentition without obvious periapical abscess EYES: Extraocular movements are intact. Pupils are equal round and reactive to light bilaterally NECK: Supple. Trachea is midline. LUNGS: Nonlabored breathing. Equal chest rise bilaterally. Clear to auscultation bilaterally. HEART/CARDIOVASCULAR: Regular rate and rhythm. No murmurs or rubs. VASCULAR: 2+ peripheral pulses. Cap refill < 2 seconds ABDOMEN: Abdomen is soft and nondistended. There is mild tenderness to palpation of the right lower quadrant left lower quadrant without guarding or rebound tenderness. SKIN: Skin is warm and dry. To the right distal medial thigh and knee region there are multiple puncture wounds noted with 1 laceration of approximately 1.5 cm with some exposed granulation tissue but no purulent drainage, no surrounding erythema, and no fluctuance. Range of motion at the knee is intact. No crepitus. NEURO: Patient is awake, alert, and oriented. product architect II-XII grossly intact. No focal deficits. Normal motor and sensory exam throughout. Normal speech. MUSCULOSKELETAL: No obvious deformities. No significant tenderness. Normal ROM throughout. BACK/SPINE: No midline tenderness or step-offs of the C/T/L spine. Left costovertebral angle tenderness noted ED Course Vital Signs 02/03/21 02/03/21 16:32 16:55 Pulse Rate 64 Respiratory 16 22 Rate Blood Pressure 124/84 [Right] O2 Sat by Pulse 99 Oximetry ED Medical Decision Making - Lab Data Result diagrams: 02/03/21 17:20 02/03/21 17:20 Lab Results 02/03/21 02/03/21 02/03/21 Range/Units 17:20 17:20 17:20 WBC 7.5 (4.5-11.0) K/mm3 RBC 4.15 (3.65-5.03) M/mm3 Hgb 13.6 (10.1-14.3) gm/dl Hct 39.4 (30.3-42.9) % MCV 95 (79-97) fl MCH 33 H (28-32) pg MCHC 34 (30-34) % RDW 13.5 (13.2-15.2) % Plt Count 245 (140-440) K/mm3 Lymph % (Auto) 40.5 H (13.4-35.0) % [place] % (Auto) 7.1 (0.0-7.3) % Eos % (Auto) 1.0 (0.0-4.3) % Baso % (Auto) 0.5 (0.0-1.8) % Lymph # (Auto) 3.0 (1.2-5.4) K/mm3 [place] # (Auto) 0.5 (0.0-0.8) K/mm3 Eos # (Auto) 0.1 (0.0-0.4) K/mm3 Baso # (Auto) 0.0 (0.0-0.1) K/mm3 Seg Neutrophils % 50.9 (40.0-70.0) % Seg Neutrophils # 3.8 (1.8-7.7) K/mm3 Sodium 142 (137-145) mmol/L Potassium 3.5 L (3.6-5.0) mmol/L Chloride 106.2 (98-107) mmol/L Carbon Dioxide 23 (22-30) mmol/L Anion Gap 16 mmol/L BUN 17 (7-17) mg/dL Creatinine 0.8 (0.6-1.2) mg/dL Estimated GFR > 60 ml/min BUN/Creatinine Ratio 21 % Glucose 98 (65-100) mg/dL Lactic Acid 0.90 (0.7-2.0) mmol/L Calcium 10.0 (8.4-10.2) mg/dL Magnesium (1.7-2.3) mg/dL Total Bilirubin 0.30 (0.1-1.2) mg/dL AST 15 (5-40) units/L ALT 5 L (7-56) units/L Alkaline Phosphatase 50 (35-129) units/L Total Protein 7.6 (6.3-8.2) g/dL Albumin 4.6 (3.9-5) g/dL Albumin/Globulin Ratio 1.5 % Lipase (13-60) units/L HCG, Qual (Negative) 02/03/21 02/03/21 02/03/21 Range/Units 17:20 17:20 20:04 WBC (4.5-11.0) K/mm3 RBC (3.65-5.03) M/mm3 Hgb (10.1-14.3) gm/dl Hct (30.3-42.9) % MCV (79-97) fl MCH (28-32) pg MCHC (30-34) % RDW (13.2-15.2) % Plt Count (140-440) K/mm3 Lymph % (Auto) (13.4-35.0) % [place] % (Auto) (0.0-7.3) % Eos % (Auto) (0.0-4.3) % Baso % (Auto) (0.0-1.8) % Lymph # (Auto) (1.2-5.4) K/mm3 [place] # (Auto) (0.0-0.8) K/mm3 Eos # (Auto) (0.0-0.4) K/mm3 Baso # (Auto) (0.0-0.1) K/mm3 Seg Neutrophils % (40.0-70.0) % Seg Neutrophils # (1.8-7.7) K/mm3 Sodium (137-145) mmol/L Potassium (3.6-5.0) mmol/L Chloride (98-107) mmol/L Carbon Dioxide (22-30) mmol/L Anion Gap mmol/L BUN (7-17) mg/dL Creatinine (0.6-1.2) mg/dL Estimated GFR ml/min BUN/Creatinine Ratio % Glucose (65-100) mg/dL Lactic Acid 0.80 (0.7-2.0) mmol/L Calcium (8.4-10.2) mg/dL Magnesium 2.30 (1.7-2.3) mg/dL Total Bilirubin (0.1-1.2) mg/dL AST (5-40) units/L ALT (7-56) units/L Alkaline Phosphatase (35-129) units/L Total Protein (6.3-8.2) g/dL Albumin (3.9-5) g/dL Albumin/Globulin Ratio % Lipase 34 (13-60) units/L HCG, Qual Negative (Negative) - Radiology Data CHEST 1 VIEW INDICATION: possible sepsis. COMPARISON: None. FINDINGS: Support devices: None. Heart: Normal. Lungs/Pleura: No acute pulmonary or pleural findings. IMPRESSION: 1. No acute findings. Signer Name: Tobias Ellis MD Signed: 02/03/2021 6:29 PM Workstation Name: [id number] CT ABDOMEN AND PELVIS WITH IV CONTRAST INDICATION: lower abdominal tenderness, Left CVA tend 100 ML OMNI 300 . COMPARISON: None available. TECHNIQUE: All CT scans at this facility use dose modulation, automated exposure control, iterative reconstruction or weight based dosing, when appropriate, to reduce radiation dose to as low as reasonably achievable. FINDINGS: Lung Bases: No significant abnormality. Skeletal System: No acute abnormality. ABDOMEN: Liver: No significant abnormality. Gallbladder: No significant abnormality. Bile Ducts: No significant abnormality. Pancreas: No significant abnormality. Spleen: No significant abnormality. Adrenals: No significant abnormality. Right Kidney: No significant abnormality. Left Kidney: No significant abnormality. Upper GI tract: No significant abnormality. Lymph Nodes: No significant adenopa thy. Aorta: No significant abnormality. Additional Findings: No significant abnormality. PELVIS: Colon: No acute abnormality. Diverticulosis is noted. Urinary Bladder and Distal Ureters: No significant abnormality. Appendix: Not visualized. Lymph Nodes: No significant adenopathy. Additional Findings: None. IMPRESSION: 1. No acute process in the abdomen or pelvis. Signer Name: Tobias Ellis MD Signed: 02/03/2021 5:49 PM Workstation Name: [id number] RIGHT KNEE 2 VIEWS INDICATION: eval for signs of infection...dog bite. COMPARISON: No relevant prior imaging study available. FINDINGS: No significant skeletal abnormality. There is laceration injury along the medial aspect of the right knee. No foreign bodies are seen. There is surrounding soft tissue swelling. IMPRESSION: 1. Medial laceration injury with associated soft tissue swelling. No foreign bodies. Signer Name: Tobias Ellis MD Signed: 02/03/2021 6:21 PM Workstation Name: [id number] - Medical Decision Making 46-year-old female with history of asthma and cardiomegaly presents from her doctor's office due to concern for dehydration or possible sepsis. The patient states that she suffered a dog bite to her right lower extremity 1 week ago. She was started on clindamycin prophylactically for the dog bite but developed nausea, vomiting, and diarrhea that same day. She stopped taking the clind amycin 2 days later. However, she has continued to have the nausea/vomiting/diarrhea. Also reports lower abdominal pain and dysuria. On initial presentation, the patient is afebrile and with normal vital signs. On physical exam she does have dry mucous membranes. She has right lower quadrant and left lower quadrant abdominal tenderness without guarding or rebound. She is also noted to have left-sided CVA tenderness. The right lower extremity near the knee has multiple puncture wounds originating from the dog bite with one of the largest being a 1.5 cm laceration left open with some granulation tissue present but no surrounding erythema or fluctuance. Given that the differential diagnosis is very broad at this time I have initiated the suspected sepsis order set we will order a full set of labs and cultures. In addition, I will obtain an x-ray of the right knee. I have ordered a C. difficile stool test. I have ordered CT of the abdomen and pelvis to assess for evidence of obstructed kidney stone versus other intra-abdominal catastrophe or explanation for her symptoms. We will give 2 L of IV fluids and Zofran and reassess frequently. Labs have returned and reveal no significant leukocytosis or anemia. There is no significant electrolyte abnormality other than mild hypokalemia with potassium 3.5. Kidney function is normal. CT of the abdomen pelvis reveals no acute abnormalities. Plain film x-rays reveal only evidence of soft tissue injury which is known without signs of underlying gas. Chest x-ray is within normal limits. I am no longer suspicious for sepsis. The only test that are pending are urinalysis and C. difficile test. While in the ER for the last 6 hours, the patient has had no further episodes of diarrhea or vomiting. C. difficile is therefore very unlikely. I spoke with the patient about the fact that urinalysis is still pending and the fact that we will need this in order to assess for evidence of a urinary tract infection so that we can prescribe outpatient antibiotics and medications for vomiting. Before urinalysis could be sent, I was informed by the nurse at 11:05 PM, that the patient pulled out her IV and eloped. Critical care attestation.: If time is entered above; I have spent that time in minutes in the direct care of this critically ill patient, excluding procedure time. ED Disposition Clinical Impression: Dog bite of right thigh, Nausea & vomiting, Dehydration, Diarrhea Disposition: ELOPED Is pt being admited?: No Condition: Stable Referrals: PRIMARY CARE,MD [Primary Care Provider] - 3-5 Days
[2021-02-03 17:47] LABS: Basophils % (Auto) 0.5 % (0.0-1.8); Eosinophils # (Auto) 0.1 K/mm3 (0.0-0.4); Hematocrit 39.4 % (30.3-42.9); Hemoglobin 13.6 gm/dl (10.1-14.3); Lymphocytes % (Auto) 40.5 % (13.4-35.0); Mean Corpuscular HGB Conc 34 % (30-34); Mean Corpuscular Volume 95 fl (79-97); Monocytes # (Auto) 0.5 K/mm3 (0.0-0.8); Monocytes % (Auto) 7.1 % (0.0-7.3); Platelet Count 245 K/mm3 (140-440); Red Blood Count 4.15 M/mm3 (3.65-5.03); Red Cell Distribution Width 13.5 % (13.2-15.2)
[2021-02-03 18:07] LABS: Alanine Aminotransferase 5 units/L (7-56); Albumin 4.6 g/dL (3.9-5); BUN/Creatinine Ratio 21; Blood Urea Nitrogen 17 mg/dL (7-17); Hemolysis Index 5
[2021-02-03 18:15] VITALS: BP 119/68
--- NOTE | 2021-02-03 18:54 | Cat Scan Report ---
CT ABDOMEN AND PELVIS WITH IV CONTRAST INDICATION: lower abdominal tenderness, Left CVA tend 100 ML OMNI 300 . COMPARISON: None available. TECHNIQUE: All CT scans at this facility use dose modulation, automated exposure control, iterative reconstructi on or weight based dosing, when appropriate, to reduce radiation dose to as low as reasonably achieva ble. FINDINGS: Lung Bases: No significant abnormality. Skeletal System: No acute abnormality. ABDOMEN: Liver: No significant abnormality. Gallbladder: No significant abnormality. Bile Ducts: No significant abnormality. Pancreas: No significant abnormality. Spleen: No significant abnormality. Adrenals: No significant abnormality. Right Kidney: No significant abnormality. Left Kidney: No significant abnormality. Upper GI tract: No significant abnormality. Lymph Nodes: No significant adenopathy. Aorta: No significant abnormality. Additional Findings: No significant abnormality. PELVIS: Colon: No acute abnormality. Diverticulosis is noted. Urinary Bladder and Distal Ureters: No significant abnormality. Appendix: Not visualized. Lymph Nodes: No significant adenopathy. Additional Findings: None. IMPRESSION: 1. No acute process in the abdomen or pelvis. Signer Name: Tobias Ellis MD Signed: 02/03/2021 6:49 PM Workstation Name: [id number]
[2021-02-03] MEDS ORDERED: POTASSIUM CHLORIDE ER 20 MEQ TAB PO ONE (19:11)
--- NOTE | 2021-02-03 19:26 | XRay Report ---
RIGHT KNEE 2 VIEWS INDICATION: eval for signs of infection...dog bite. COMPARISON: No relevant prior imaging study available. FINDINGS: No significant skeletal abnormality. There is laceration injury along the medial aspect of the right knee. No foreign bodies are seen. The re is surrounding soft tissue swelling. IMPRESSION: 1. Medial laceration injury with associated soft tissue swelling. No foreign bodies. Signer Name: Tobias Ellis MD Signed: 02/03/2021 7:21 PM Workstation Name: [id number]
--- NOTE | 2021-02-03 19:33 | XRay Report ---
CHEST 1 VIEW INDICATION: possible sepsis. COMPARISON: None. FINDINGS: Support devices: None. Heart: Normal. Lungs/Pleura: No acute pulmonary or pleural findings. IMPRESSION: 1. No acute findings. Signer Name: Tobias Ellis MD Signed: 02/03/2021 7:29 PM Workstation Name: [id number]
== END 2021-02-03 23:00 | disposition left against medical advice (07) ==
LOC: ED 16:30
DX: S71.151A Open bite, right thigh, initial encounter (principal); R11.2 Nausea with vomiting, unspecified; R19.7 Diarrhea, unspecified; E86.0 Dehydration; J45.909 Unspecified asthma, uncomplicated; F12.90 Cannabis use, unspecified, uncomplicated; Z90.49 Acquired absence of other specified parts of digestive tract; Z79.899 Other long term (current) drug therapy; Z88.8 Allergy status to other drugs, medicaments and biological substances; Z88.0 Allergy status to penicillin; W54.0XXA Bitten by dog, initial encounter; Y93.89 Activity, other specified; Y92.89 Other specified places as the place of occurrence of the external cause; Y99.8 Other external cause status
CPT/HCPCS: 36415; 71045; 73560; 74177; 80053; 82140; 83690; 83735; 84703; 85025; 87040; 96374; 96375; 99284; J2405; J7120; Q9967

== ENCOUNTER 2021-03-10 13:46 | Emergency (ER) | payer MEDICARE ==
[2021-03-10 15:46] VITALS: BP 112/72
--- NOTE | 2021-03-10 15:51 | Emergency Department Report ---
Upper Extremity - HPI Chief Complaint: Extremity Injury, Upper Stated Complaint: LT WRIST PAINS Time Seen by Provider: 03/10/21 15:48 Other History: Patient is a 46-year-old female presents emergency room complaints of left wrist pain that began earlier today. she states that she has a history of a wrist fracture x4 in this wrist. 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 She states that she was supposed to go to [facility] 4 months ago but missed her appointment. She denies any numbness or weakness. ED Review of Systems ROS: Stated complaint: LT WRIST PAINS Other details as noted in HPI Comment: All other systems reviewed and negative ED Past Medical Hx - Past Medical History Previous Medical History?: Yes Hx Asthma: Yes Additional medical history: cardiomegaly - Surgical History Past Surgical History?: Yes Hx Appendectomy: Yes Additional Surgical History: bladder surgery, nasal surgery - Social History Smoking Status: Unknown if ever smoked Substance Use Type: Marijuana - Medications Home Medications: Home Medications Medication Instructions Recorded Confirmed Last Taken Type Albuterol *Only Ed* [Proventil 04/29/13 04/29/13 04/16/13 09:00 History 0.5% NEBS] clonazePAM [Klonopin] 1 mg PO 04/29/13 04/29/13 04/16/13 12:00 History Ibuprofen [Motrin] 800 mg PO Q8H PRN #20 tablet 05/12/14 Unknown Rx Naproxen [Naprosyn TAB] 500 mg PO BID PRN #60 tablet 03/10/17 Unknown Rx Neomycin/Bacitracin/Polymyxinb 14.2 gm TP BID #1 tube 03/10/17 Unknown Rx [Neosporin Antibiotic Ointment] Albuterol Mdi (or & Nicu Only) 2 puff IH QID PRN #1 inhalation 08/08/17 Unknown Rx [Proair] Azithromycin [Zithromax Z-LILIAN] 0 mg PO DAILY #6 tab 08/08/17 Unknown Rx Benzonatate [Tessalon Perle] 100 mg PO TID PRN #30 capsule 08/08/17 Unknown Rx HYDROcodone/APAP 5-325 [[place] 1 - 2 each PO Q6HR PRN #14 tablet 08/08/17 Unknown Rx 5/325] Acetaminophen/Codeine [Tylenol 1 tab PO Q6H PRN #12 tab 04/06/18 Unknown Rx /Codeine # 3 tab] Ibuprofen [Motrin] 600 mg PO Q8H PRN #30 tablet 04/06/18 Unknown Rx Doxycycline Hyclate [Doxycycline 100 mg PO Q12HR #10 tab 09/28/18 Unknown Rx Hyclate TAB] Ibuprofen [Motrin 600 MG tab] 600 mg PO Q8H PRN #12 tablet 09/28/18 Unknown Rx Cyclobenzaprine [Flexeril] 10 mg PO TID PRN #30 tablet 10/30/18 Unknown Rx Menthol/Camphor [[place] 1 applicatio TP QID PRN #1 tube 10/30/18 Unknown Rx Ointment] Naproxen [Naprosyn TAB] 500 mg PO BID #30 tablet 10/30/18 Unknown Rx HYDROcodone/APAP 5-325 [[place] 1 each PO Q6HR PRN #12 tablet 04/17/19 Unknown Rx 5/325] Upper Extremity Exam - Exam General: Vital signs noted. No distress. Alert and acting appropriately. Arm Exam: No Arm/Humerus Tenderness, No Arm Deformity Elbow: Yes Normal Range of Motion in Elbow, No Elbow Tenderness, No Elbow Deformity Forearm: No Forearm Tenderness, No Forearm Deformity Wrist: Yes Wrist Tenderness (bilateral wrist ttp), No Normal ROM in Wrist (decreased ROM secondary to pain), No Wrist Deformity, No Snuffbox Tenderness Hand: Yes Normal ROM in Digit(s), No Hand Tenderness, No Hand Deformity, No Digit Tenderness, No Digit(s) Deformity, No Tendon Dysfunction CMS Exam: Yes Normal Distal Pulses, Yes Normal Capillary Refill, Yes Normal Distal Sensation, No Broken Skin ED Course Vital Signs 03/10/21 15:46 Temperature 98.3 F Pulse Rate 71 Respiratory 20 Rate Blood Pressure 112/72 O2 Sat by Pulse 98 Oximetry ED Medical Decision Making - Radiology Data Radiology results: report reviewed Ordering Physician: JORGE PEREZ Date of Service: 03/10/21 Procedure(s): XR wrist 3+V LT Accession Number(s): [id number] cc: JORGE PEREZ Fluoro Time In Minutes: LEFT WRIST RADIOGRAPH, 3 VIEWS INDICATION / CLINICAL INFORMATION: hx of wrist fracture, picked up grandson, now pain COMPARISON: None available. FINDINGS: BONES / JOINT(S): No acute displaced fracture or subluxation. No significant arthritis. SOFT TISSUES: No significant abnormality. ADDITIONAL FINDINGS: None. Signer Name: Lyn Longo MD Signed: 03/10/2021 4:12 PM Workstation Name: [id number] Transcribed By: [facility] Dictated By: Lyn Longo MD Electronically Authenticated By: Lyn Longo MD Signed Date/Time: 03/10/211611 DD/ 09 TD/TT: - Medical Decision Making Patient is a 46-year-old female presents emergency room complaints of left wrist pain that began earlier today. she states that she has a history of a wrist fracture x4 in this wrist. 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 She states that she was supposed to go to [facility] 4 months ago but missed her appointment. She denies any numbness or weakness. vitals are normal. on exam: Bilateral wrist tenderness, no snuffbox tenderness, no deformity, no edema, no ecchymosis, decreased range of motion secondary to pain, neurovascularly intact. X-ray left wrist: BONES / JOINT(S): No acute displaced fracture or subluxation. No significant arthritis. SOFT TISSUES: No significant abnormality. ADDITIONAL FINDINGS: None. Patient placed in Velcro wrist splint. Discussed all results with patient and answered questions. Discussed the importance of orthopedic follow-up. Advised patient may take tylenol or ibuprofen as needed for pain. May use ice for 15 minutes at a time, rest, elevation of the arm. Follow-up with your orthopedic doctor. Return to emergency room for new or worse symptoms. Critical care attestation.: If time is entered above; I have spent that time in minutes in the direct care of this critically ill patient, excluding procedure time. ED Disposition Clinical Impression: Left wrist pain Disposition: DC-01 TO HOME OR SELFCARE Is pt being admited?: No Does the pt Need Aspirin: No Condition: Stable Instructions: Wrist Pain, Adult, [id number] Additional Instructions: may take tylenol or ibuprofen as needed for pain. May use ice for 15 minutes at a time, rest, elevation of the arm. Follow-up with your orthopedic doctor. Return to emergency room for new or worse symptoms. Referrals: [facility] [Provider Group] - 2-3 Days Time of Disposition: 16:18 Print Language: ARMENIAN
--- NOTE | 2021-03-10 16:16 | XRay Report ---
LEFT WRIST RADIOGRAPH, 3 VIEWS INDICATION / CLINICAL INFORMATION: hx of wrist fracture, picked up grandson, now pain COMPARISON: None available. FINDINGS: BONES / JOINT(S): No acute displaced fracture or subluxation. No significant arthritis. SOFT TISSUES: No significant abnormality. ADDITIONAL FINDINGS: None. Signer Name: Lyn Longo MD Signed: 03/10/2021 4:12 PM Workstation Name: [id number]
== END 2021-03-10 16:29 | disposition home or self-care (01) ==
LOC: ED 13:46
DX: M25.532 Pain in left wrist (principal); J45.909 Unspecified asthma, uncomplicated; F12.90 Cannabis use, unspecified, uncomplicated; Z90.49 Acquired absence of other specified parts of digestive tract; Z98.890 Other specified postprocedural states; Z79.899 Other long term (current) drug therapy; Z88.0 Allergy status to penicillin; Z88.8 Allergy status to other drugs, medicaments and biological substances